=== PATIENT | male | born 1935 | race Caucasian/White ===

== ENCOUNTER → 2018-01-03 | Day surgery (SDC) | payer OTHER ==
[2017-12-30 15:30] VITALS: BMI 31.8
[2018-01-03 08:27] LABS: BASO % 1.1 % (0-2.0); EOS % 2.7 % (0-4.5); HEMATOCRIT 40.4 % (35.4-49); HEMOGLOBIN 13.3 GM/dL (11.7-16.9); LYMPH % 14.2 % (8-40); MCH 29.6 pg (25.7-33.7); MEAN CELL VOLUME 89.8 fl (80-96); MEAN PLT VOLUME 8.8 fl (7.5-11.1); MONO % 8.7 % (3.8-10.2); NEUT % 73.3 % (42.8-82.8); PLATELET COUNT 166 K/MM3 (134-434); RBC 4.49 M/mm3 (4.00-5.60); RDW 17.5 % (11.9-15.9); WHITE BLOOD COUNT 7.1 K/mm3 (4.0-10.0)
[2018-01-03 08:46] LABS: INR 1.09 (0.82-1.09); PROTHROMBIN TIME (PATIENT) 12.3 SEC (9.98-11.88)
[2018-01-03 14:35] VITALS: BP 97/57; PULSE 61; TEMP 97.7
== END | disposition home or self-care (01) ==
LOC: JRADIR 08:00
PROVIDERS: ATTEND Internal Medicine Hematology & Oncology
PROC: 0FB03ZX Excision of Liver, Percutaneous Approach, Diagnostic (ICD-10-PCS; principal; 2018-01-03)
DX: D37.6 Neoplasm of uncertain behavior of liver, gallbladder and bile ducts (principal); Z85.038 Personal history of other malignant neoplasm of large intestine
CPT/HCPCS: 36415; 76942-TC; 82962; 85025; 85610; 87899

== ENCOUNTER 2018-01-28 10:07 | Day surgery (SDC) | payer OTHER ==
[2018-01-26 10:52] VITALS: BMI 31.8
[2018-01-28 10:31] LABS: HEMATOCRIT 41.3 % (35.4-49); HEMOGLOBIN 13.6 GM/dL (11.7-16.9); MCH 29.9 pg (25.7-33.7); MCHC 32.9 g/dl (32.0-35.9); MEAN CELL VOLUME 90.8 fl (80-96); MEAN PLT VOLUME 9.5 fl (7.5-11.1); PLATELET COUNT 168 K/MM3 (134-434); RBC 4.55 M/mm3 (4.00-5.60); RDW 18.1 % (11.9-15.9)
[2018-01-28 10:53] LABS: INR 1.06 (0.82-1.09)
[2018-01-28] MEDS ORDERED: SODIUM CHLORIDE 500 ML IV SCH (12:50)
[2018-01-28] MEDS ORDERED: MIDAZOLAM HCL 2 MG/2 ML SINGLE DOSE VIAL IVPUSH ONE (12:50)
[2018-01-28] MEDS ORDERED: oxyCODONE HCL 5 MG TABLET ONE (14:55)
[2018-01-28] MEDS ORDERED: oxyCODONE HCL 5 MG TABLET PO ONE (15:00)
[2018-01-28 18:35] VITALS: BP 119/61; PULSE 81; TEMP 98
--- NOTE | 2018-02-03 09:18 | PATH ---
Surgical Pathology Report Patient Name: MARIA ELENA SKINNER [facility]. Rec. #: [id number] /Age/Gender: 1935 (Age: 82) / M Account: [id number] Location: RADIOLOGY Taken: 01/28/2018 Received: 01/28/2018 Reported: 02/03/2018 Physicians: Gibson Laughlin M.D. Choco Brito M.D. Specimen(s) Received LIVER BIOPSY Clinical History ??? Cancer with liver mass Final Diagnosis LIVER, CORE BIOPSY: LIVER WITH FOCAL AREAS OF FIBROSIS, VASCULAR PROLIFERATION, NONSPECIFIC CHRONIC INFLAMMATION, AND MILD STEATOSIS (~10%). SEE COMMENT. Comment: The specimen is comprised of cores of hepatic parenchyma with mild steatosis (10%), non-specific chronic inflammation, and prominent areas of fibrosis and focal hemorrhage. An area of vascular proliferation imbedded in fibrosis is highlighted by CD34 and [id number].CK7 highlights bile ducts. Glypican-3 is negative with background staining. No malignancy identified in this material. A large mass by imaging is noted. Overall findings raise the possibility of a vascular lesion such as a hemangioma. Suggest clinical and radiologic correlation. Prior material [id number] was reviewed. Immunohistochemical stains was performed at [place], [place] ([id number]) and interpreted at [facility]. Findings discussed with Dr. Brito. Electronically Signed Columba Harley M.D. Gross Description Received in formalin labeled "liver biopsy," are 3 anderson, cylindrical portions of soft tissue ranging from 0.6-1.8 cm in length and averaging 0.1 cm in diameter. The specimens are submitted in toto in one cassette. 01/28/201801/28/2018
== END 2018-01-28 19:05 | disposition home or self-care (01) ==
LOC: JRADIR 10:07
PROVIDERS: ATTEND Internal Medicine Hematology & Oncology
PROC: 0FB03ZX Excision of Liver, Percutaneous Approach, Diagnostic (ICD-10-PCS; principal; 2018-01-28)
DX: Z85.038 Personal history of other malignant neoplasm of large intestine (principal); K74.0 Hepatic fibrosis; K75.9 Inflammatory liver disease, unspecified; K76.0 Fatty (change of) liver, not elsewhere classified
CPT/HCPCS: 36415; 47000; 76098-TC-FY; 76705-TC; 85027; 85610; 87899; 88305-TC; 88341-TC

== ENCOUNTER 2018-11-23 10:44 | Emergency (ER) | payer OTHER ==
[2018-11-23 10:50] VITALS: BP 111/56; PULSE 90; TEMP 97.9; BMI 31.1
--- NOTE | 2018-11-23 11:37 | PDOC ---
History of Present Illness - General History Source: Patient Exam Limitations: No Limitations - History of Present Illness Initial Comments: 11/23/18 12:25 The patient is an 83-year-old male accompanied by aide, with a past medical history of asthma, heart murmur, a-fib, CVA, COPD, NIDDM, GERD, BPH, HTN, liver ca, who presents to the ED s/p mechanical fall 1.5 days ago. Patient states that he was in the bathroom when he fell and hit the RT side of his head. Denies any loss of consciousness. Aide states that the patient was alone when this occurred. Patient states that he able to stand, but uses a wheelchair to get around his home. He reports that Dr. Watkins advised the patient to come to the ED for further evaluation. On exam, the patient is complaining of pain to his right mastoid. The patient denies any fevers, chills, nausea, vomiting, diarrhea, constipation , or abdominal pain. He denies any chest pain, shortness of breath, or palpitations. Allergies: Penicillins Surgical History: Appendectomy, cholecystectomy, cardiac stents. Social History: None reported. <Paulette Webb - Last Filed: 11/23/18 14:19> <Charanjit Cordoba - Last Filed: 11/23/18 14:40> - General Chief Complaint: Head/Neck problem Stated Complaint: SLIP AND FALL Time Seen by Provider: 11/23/18 11:24 Past History <Paulette Webb - Last Filed: 11/23/18 14:19> - Past Medical History Anemia: No Asthma: Yes Cancer: Yes (liver) Cardiac Disorders: Yes (HEART MURMUR, A-FIB) CVA: Yes (mild) COPD: Yes (COPD) CHF: Yes Dementia: No (decr memory?) Diabetes: Yes (NIDDM) GI Disorders: Yes (GERD) Disorders: Yes (BPH) HTN: Yes Hypercholesterolemia: Yes Liver Disease: Yes (CANCER?) Seizures: No Thyroid Disease: No - Surgical History Abdominal Surgery: No Appendectomy: Yes Cardiac Surgery: Yes Cholecystectomy: Yes Lung Surgery: Yes (CARDIAC STENTS) Neurologic Surgery: No Orthopedic Surgery: No - Suicide/Smoking/Psychosocial Hx Smoking History: Unknown if ever smoked Have you smoked in the past 12 months: No Hx Alcohol Use: No (37 YRS AGO) Drug/Substance Use Hx: No Substance Use Type: None Hx Substance Use Treatment: No <Charanjit Cordoba - Last Filed: 11/23/18 14:40> - Past Medical History Allergies/Adverse Reactions: Allergies Allergy/AdvReac Type Severity Reaction Status Date / Time Penicillins Allergy Severe sweating Verified 11/23/18 10:50 Home Medications: Ambulatory Orders Allopurinol [Zyloprim -] 300 mg PO DAILY 11/23/18 Atorvastatin Calcium 20 mg PO DAILY 11/23/18 Docusate Sodium [Stool Softener] 200 mg PO HS 11/23/18 Duloxetine HCl 60 mg PO DAILY 11/23/18 Folic Acid 1 mg PO DAILY 11/23/18 Gabapentin 300 mg PO BID 11/23/18 Midodrine HCl 2.5 mg PO DAILY 11/23/18 Mv-Min/FA/Vit K/Lycop/Lut/Zeax [Ocuvite Eye + Multi Tablet] 1 each PO DAILY Pantoprazole Sodium 40 mg PO DAILY 11/23/18 Tamsulosin HCl 0.4 mg PO HS 11/23/18 Torsemide 20 mg PO DAILY 11/23/18 Warfarin Na [Coumadin] 1.5 mg PO ASDIR 11/23/18 Warfarin Na [Coumadin] 3 mg PO ASDIR 11/23/18 hydrALAZINE HCL [Apresoline -] 10 mg PO BID 11/23/18 Review of Systems - Review of Systems Able to Perform ROS?: Yes Comments:: 11/23/18 12:26 CONSTITUTIONAL: No fever, no chills, no fatigue EYES: No visual changes HEAD: (+)RT mastoid pain. ENT: No ear pain, no sore throat CARDIOVASCULAR: No chest pain, no palpitations RESPIRATORY: No cough, no SOB GI: No abdominal pain, no nausea, no vomiting, no constipation, no diarrhea GENITOURINARY: No dysuria, no frequency, no hematuria MUSKULOSKELETAL: No back pain, no joint pain. SKIN: No rash NEURO: No headache <Paulette Webb - Last Filed: 11/23/18 14:19> *Physical Exam - Vital Signs Last Vital Signs Temp Pulse Resp BP Pulse Ox 97.9 F 90 18 111/56 L 97 11/23/18 10:45 11/23/18 10:45 11/23/18 10:45 11/23/18 10:45 11/23/18 10:45 <Paulette Webb - Last Filed: 11/23/18 14:19> - Vital Signs Last Vital Signs Temp Pulse Resp BP Pulse Ox 97.9 F 90 18 111/56 L 97 11/23/18 10:45 11/23/18 10:45 11/23/18 10:45 11/23/18 10:45 11/23/18 10:45 - Physical Exam Comments: 11/23/18 13:31 EXAMINATION CONSTITUTIONAL: alert, awake, well nourished, nad, gcs-15 HEAD: Normocephalic; atraumatic EYES: PERRL; EOM intact ENMT: External appears normal; + poor dentition NECK: Supple; no midline tender; + right mastoid/right paraspinal ttp CARD: irregular; no murmurs, rubs, or gallops RESP: Normal chest excursion with respiration; breath sounds clear and equal bilaterally; no wheezes, rhonchi, or rales ABD: Soft, non-distended; non-tender; no palpable organomegaly, no palpable hernias EXT: Normal passive ROM in all four extremities; non-tender to palpation; distal pulses intact; pt uses a wheelchair for trasport PELVIS: stable SKIN: Warm, dry, no rash NEURO: moving all extr symmetrycally; gait-deffered <Charanjit Cordoba - Last Filed: 11/23/18 14:40> Moderate Sedation - Procedure Monitoring Vital Signs: Procedure Monitoring Vital Signs Temperature 97.9 F 11/23/18 10:45 Pulse Rate 90 11/23/18 10:45 Respiratory Rate 18 11/23/18 10:45 Blood Pressure 111/56 L 11/23/18 10:45 O2 Sat by Pulse Oximetry (%) 97 11/23/18 10:45 <Paulette Webb - Last Filed: 11/23/18 14:19> - Procedure Monitoring Vital Signs: Procedure Monitoring Vital Signs Temperature 97.9 F 11/23/18 10:45 Pulse Rate 90 11/23/18 10:45 Respiratory Rate 18 11/23/18 10:45 Blood Pressure 111/56 L 11/23/18 10:45 O2 Sat by Pulse Oximetry (%) 97 11/23/18 10:45 <Charanjit Cordoba - Last Filed: 11/23/18 14:40> Medical Decision Making - Medical Decision Making 11/23/18 14:19 Dr. Wilkinson was paged and notified via phone service. <Paulette Webb - Last Filed: 11/23/18 14:19> - Medical Decision Making 11/23/18 14:06 Patient is an 83-year-old male on Coumadin who presented 36-48 hours after a mechanical fall. Will obtain CT of head/cervical spine and if no evidence of acute pathology, will discharge. 11/23/18 14:38 CT of head/cervical spine shows no evidence of acute intracranial or cervical spine pathology. Chronic sinusitis and cervical spine DJD is noted. Case discussed with Dr. Simpson. No indication for repeat radiological studies a present given the patient presented 36 hours after the incident. <Charanjit Cordoba - Last Filed: 11/23/18 14:40> *DC/Admit/Observation/Transfer - Attestations Scribe Attestion: 11/23/18 12:46 Documentation prepared by Paulette Webb, acting as medical reviewer for Charanjit Cordoba MD. <Paulette Webb - Last Filed: 11/23/18 14:19> <Charanjit Cordoba - Last Filed: 11/23/18 14:40> Diagnosis at time of Disposition: Head injury Qualifiers: Encounter type: initial encounter Qualified Code(s): S09.90XA - Unspecified injury of head, initial encounter - Discharge Dispostion Disposition: HOME Condition at time of disposition: Stable - Referrals Referrals: Azeem Abbott MD [Primary Care Provider] - - Patient Instructions Printed Discharge Instructions: DI for Closed Head Injury
== END 2018-11-23 15:27 | disposition home or self-care (01) ==
LOC: JER 10:44
DX: S09.8XXA Other specified injuries of head, initial encounter (principal); W01.0XXA Fall on same level from slipping, tripping and stumbling without subsequent striking against object, initial encounter; Y93.89 Activity, other specified; Y92.031 Bathroom in apartment as the place of occurrence of the external cause; Y99.8 Other external cause status; I25.10 Atherosclerotic heart disease of native coronary artery without angina pectoris; I10 Essential (primary) hypertension; Z95.5 Presence of coronary angioplasty implant and graft; I48.91 Unspecified atrial fibrillation; Z79.01 Long term (current) use of anticoagulants; E11.9 Type 2 diabetes mellitus without complications; Z79.84 Long term (current) use of oral hypoglycemic drugs; J44.9 Chronic obstructive pulmonary disease, unspecified; J45.909 Unspecified asthma, uncomplicated; K21.9 Gastro-esophageal reflux disease without esophagitis; N40.0 Benign prostatic hyperplasia without lower urinary tract symptoms; Z85.05 Personal history of malignant neoplasm of liver; Z86.73 Personal history of transient ischemic attack (TIA), and cerebral infarction without residual deficits; Z88.0 Allergy status to penicillin
CPT/HCPCS: 70450-TC; 72125-TC; 99282-25